=== PATIENT | female | born 1980 | race Asian ===

== ENCOUNTER 2017-07-05 13:43 | Outpatient (CLI) | payer BC | END 2017-07-05 14:45 | disposition home or self-care (01) | LOC: MAMMO 13:43 | DX: Z12.31 Encounter for screening mammogram for malignant neoplasm of breast (principal) | CPT/HCPCS: G0202-TC ==

== ENCOUNTER 2020-09-04 10:09 | Emergency (ER) | payer BC ==
[~2020-09-04] VITALS: Ht 160 cm; Wt 132.9 kg
[2020-09-04 11:44] VITALS: BP 140/80; TEMP 99.4
== END 2020-09-04 11:48 | disposition home or self-care (01) ==
LOC: ED 10:09
DX: J20.9 Acute bronchitis, unspecified (principal)
CPT/HCPCS: 96372; 99282; J0696

== ENCOUNTER 2021-04-12 12:53 | Outpatient (CLI) | payer BC | END 2021-04-12 19:36 | disposition home or self-care (01) | LOC: MAMMO 12:53 | PROVIDERS: ATTEND Nurse Practitioner | DX: Z12.31 Encounter for screening mammogram for malignant neoplasm of breast (principal) ==

== ENCOUNTER 2022-08-21 15:24 | Outpatient (CLI) | payer BC | END 2022-08-21 20:16 | disposition home or self-care (01) | LOC: MAMMO 15:24 | PROVIDERS: ATTEND Nurse Practitioner | DX: Z12.31 Encounter for screening mammogram for malignant neoplasm of breast (principal) ==